=== PATIENT | male | born 1985 | race Caucasian/White ===

== ENCOUNTER 2016-08-16 20:06 | Emergency (ER) | payer MEDICAID ==
[2016-08-16] MEDS ORDERED: HYDROcod/ACETAM 5/325 MG TABLET PO STA (20:38)
[2016-08-16] MEDS ORDERED: HYDROcod/ACETAM 5/325 MG TABLET ONE (20:38)
== END 2016-08-16 22:01 | disposition home or self-care (01) ==
DX: S20.211A Contusion of right front wall of thorax, initial encounter (principal); W50.0XXA Accidental hit or strike by another person, initial encounter; F17.200 Nicotine dependence, unspecified, uncomplicated
CPT/HCPCS: 71101; 99283; A9270